=== PATIENT | female | born 1970 | race Caucasian/White ===

== ENCOUNTER 2017-09-26 17:32 | Day surgery (SDC) | payer OTHER ==
[~2017-09-26 17:32] MED LIST: Dexamethasone 20 MG/5 ML VIAL ONE; Lidocaine 1% PF 5 ML VIAL ONE; Ondansetron HCl/PF 4 MG/2 ML Vial ONE; PROPOFOL 200 MG/20 ML VIAL ONE
[2017-09-26] MEDS ORDERED: Fluorouracil 100 MG, Enoxaparin Sodium 25 MG, EPINEPHrine 0.3 MG in Ophthalmic Irrigati... IVPB SCH (17:40)
[2017-09-26] MEDS ORDERED: Sterile Water 0 ML ONE (17:53)
[2017-09-26] MEDS ORDERED: Phenylephrine 2.5% Ophth Soln 5 ML BOT ONE (18:01)
[2017-09-26] MEDS ORDERED: Cyclopentolate 1% Opth Drop 2 ML BOT ONE (18:01)
[2017-09-26] MEDS ORDERED: Fentanyl 100 MCG/2 ML VIAL ONE ×2 (18:03→20:30)
[2017-09-26] MEDS ORDERED: Midazolam HCl 2 mg/2 ml Vial ONE ×2 (18:03→19:15)
[2017-09-26] MEDS ORDERED: Ondansetron HCl/PF 4 MG/2 ML Vial ONE (19:15)
[2017-09-26] MEDS ORDERED: Promethazine HCl 25 MG/ML VIAL ONE (19:15)
--- NOTE | 2017-09-26 20:54 | OP ---
DATE OF PROCEDURE: 09/26/2017 PREOPERATIVE DIAGNOSIS: Rhegmatogenous retinal detachment, left eye. POSTOPERATIVE DIAGNOSIS: Rhegmatogenous retinal detachment, left eye. PROCEDURE: Pars plana vitrectomy and retinal detachment repair, left eye. SURGEON: Guillermo Mancia M.D. ANESTHESIA: General endotracheal anesthesia. COMPLICATIONS: None. PROCEDURE IN DETAIL: The patient was identified in the preoperative holding area. Appropriate infor med consent for the planned surgical procedure on the left eye had been obtained. The patient was tr ansported to the operative suite. Appropriate cardiopulmonary monitoring established. Local anesthe garcia was obtained using retrobulbar and modified Van Lint lid block using 50/50 mixture of 4% lidocain e and 0.75% bupivacaine. The patient was prepped and draped in the usual sterile manner for ophthalm ic surgery on the left eye. Lid speculum was placed in the left eye. The 25-gauge trocars were plac ed in conjunctiva and sclera supratemporally, inferotemporally and supranasally. Infusion line was p laced inferotemporally. Light pipe and vitreous cutter were inserted into the eye. Core vitrectomy was performed. Attention was turned to the tear superior temporally and vitreous was trimmed back fr om the tear. Posterior drain retinotomy was created. Complete air fluid exchange was performed with 10 minutes being allowed for fluid to drain posteriorly. A 360 laser was placed using endolaser del sunitha device. A 28% sulfur hexafluoride gas was infused into the eye. Trocars were removed and eye was noted to retain pressure well. Retrobulbar Kenalog and subconjunctival Ancef were placed. Atrop ine and antibiotic ointment were placed and the eye was patched and shielded. The patient taken to p ostoperative recovery unit in good condition having suffered no immediate perioperative complications . DISCHARGE INSTRUCTIONS: The patient was instructed to keep patch and shield on, position left side d own and follow up in the morning with Dr. Mancia.
== END 2017-09-26 21:10 | disposition home or self-care (01) ==
LOC: SDC 17:32
PROVIDERS: ATTEND Ophthalmology Retina Specialist
PROC: 08T53ZZ Resection of Left Vitreous, Percutaneous Approach (ICD-10-PCS; principal; 2017-09-26)
DX: H33.012 Retinal detachment with single break, left eye (principal); Z88.0 Allergy status to penicillin
CPT/HCPCS: 96374; A4216; J0171; J1100; J1650; J2001; J2250; J2405; J2550; J2704; J3010; J9190